=== PATIENT | male | born 1940 | race Hispanic/Latino ===

== ENCOUNTER 2025-05-25 08:43 | Day surgery (SDC) | payer OTHER ==
[2025-05-23 09:11] LABS: IMMATURE GRANULOCYTE ABSOLUTE 0.05 K/uL (0-1); NUCLEATED RED BLOOD CELLS 0.0 % (0.0-0.19); PLATELET COUNT (AUTO) 156 K/uL (130-400); RED BLOOD CELL COUNT(AUTO) 4.79 MIL/uL (4.50-6.20); RED CELL DISTRIBUTION WIDTH 14.7 % (11.0-15.5); WHITE BLOOD COUNT (AUTO) 5.7 K/uL (4.8-10.8)
[2025-05-23 09:20] LABS: INR 1.3 (0.85-1.15)
[2025-05-23 09:21] LABS: CREATININE 1.0 mg/dL (0.5-1.3); GLOMERULAR FILTR. RATE CALC 74.0 mL/min (>90); GLUCOSE,RANDOM 187.0 mg/dL (70-105); SODIUM SERUM 144.0 mmol/L (136-145); UREA NITROGEN, BLOOD 18.0 mg/dL (7-18)
--- NOTE | 2025-05-23 09:33 | EKG ---
[facility] Test Date: 2025-05-23 Test Time: 08:57:17 Pat Name: TREVOR CRISOSTOMO Department: [facility] Room: Gender: M Field Specialist: [id number] : 1940 Requested By: NETTIE MEADE Order Number: [id number] Reading MD: Leyla Hoffmna Measurements Intervals Essie Rate: 110 P: 88 AK: 198 QRS: 76 QRSD: 92 T: 5 QT: 342 QTc: 462 Interpretive Statements Sinus tachycardia ST elevation, consider inferior injury No previous ECG available for comparison Electronically Signed On 05-24-2025 10:24:39 CDT by Leyla Hoffman Please click the below link to view image of tracing.
[2025-05-23 09:47] VITALS: BP 157/105; PULSE 111; RESP 14; TEMP 97.5
--- NOTE | 2025-05-23 15:21 | NUR ---
REPORT REPORTED COAGS TO [facility] OK TO PROCEED
[2025-05-25] VITALS (9 sets, daily range): BP systolic 119–159; BP diastolic 71–106; PULSE 64–75; RESP 16–18; TEMP 97.3–208
[~2025-05-25] VITALS: Ht 162.6 cm; Wt 84.0 kg
[~2025-05-25 08:43] MED LIST: ALFUZOSIN PO; DILT240C81 PO; FINA5TAB41 PO; METF-444 PO; METO-391 PO; PANT20TA18 PO; PRAV40TA62 PO; RIVA20TA PO; VITAMIN D3 PO
[2025-05-25] MEDS: 0.9%NACL 1000ML 1,000 ML IV SCH (09:31)
[2025-05-25] MEDS ORDERED: LIDOCAINE HCL 400MG/20ML VIAL ONE (14:09)
[2025-05-25] MEDS ORDERED: SODIUM BICARB 50MEQ 50ML VIAL 50 ML ONE (14:09)
[2025-05-25] MEDS ORDERED: HEParin-NS 1,000 UNIT/500 ML 1,000 ML IV ONE (14:09)
[2025-05-25] MEDS ORDERED: MIDAZOLAM HCL 1 MG/ML 2ML VIAL ONE ×2 (14:33→15:19)
--- NOTE | 2025-05-26 01:43 | EKG ---
[facility] Test Date: 2025-05-25 Test Time: 17:36:54 Pat Name: TREVOR CRISOSTOMO Department: [facility] Room: Gender: M Car Conditioner: [id number] : 1940 Requested By: NETTIE MEADE Order Number: [id number] Reading MD: Aj Dudley Measurements Intervals [place] Rate: 64 P: 42 AR: 168 QRS: 76 QRSD: 92 T: 79 QT: 453 QTc: 468 Interpretive Statements Sinus rhythm Nonspecific T abnrm, anterolateral leads Compared to ECG 05/23/2025 08:57:17 Sinus tachycardia no longer present ST (T wave) deviation no longer present Myocardial infarct finding no longer present Electronically Signed On 05-26-2025 18:28:11 CDT by Aj Dudley Please click the below link to view image of tracing.
== END 2025-05-25 18:48 | disposition home or self-care (01) ==
LOC: DAH 08:43
PROVIDERS: ATTEND Internal Medicine Cardiovascular Disease
DX: I48.3 Typical atrial flutter (principal); I48.0 Paroxysmal atrial fibrillation; I10 Essential (primary) hypertension; E11.9 Type 2 diabetes mellitus without complications; E78.00 Pure hypercholesterolemia, unspecified; Z83.3 Family history of diabetes mellitus; Z82.49 Family history of ischemic heart disease and other diseases of the circulatory system; Z79.899 Other long term (current) drug therapy
CPT/HCPCS: 80048; 85025; 85610; 85730; 36415; 93005 ×2; 93653; 99156; 99157 ×5; 82948; A4223 ×3; C1894 ×2; C1732 ×2; C1893; A4649 ×2; C1760 ×3; J3010 ×2; J3490 ×2; J7030; J1644 ×2; J2250 ×2; A4215; A4222; A4221; A4663; A4216; A4606